=== PATIENT | male | born 1990 | race Caucasian/White ===

== ENCOUNTER 2023-09-30 14:08 | Emergency (ER) | payer SELFPAY ==
[2023-09-30 14:18] VITALS: BP 136/86
[2023-09-30 14:44] VITALS: BMI 20.3
--- NOTE | 2023-09-30 15:38 | ED.GENMED ---
History of Present Illness
General
Chief Complaint: Chest Pain
Source: patient
Exam Limitations: none
Time Seen by Provider: 09/30/23 15:36
Nursing documentation reviewed up to this point in time: agreed with
Travel History
Have you had any contact with someone who has COVID-19?: No
Do you have any symptoms of coronavirus? Fever > 100 degrees, chills, cough, shortness of breath, sore throat, loss of taste or smell, muscle aches, or headache?: No
History of Present Illness
History of Present Illness:
33-year-old male with past medical history of previous drug abuse presents to the emergency room for evaluation of chest pain. Patient reports onset of symptoms about 20 minutes prior to arrival here and symptoms abated shortly after arrival here
in triage. Currently asymptomatic on my assessment. He reports 'gurgling' sensation in the left lower chest. He says onset was shortly after he drank a cup of coffee. He says that he had mild associated palpitations. He says he felt some mild
shortness of breath. He denies any syncope. Denies any nausea, vomiting. He denies any recent illness�no coughing, fevers, chills. Has not noticed any swelling or pain in his legs. He denies having had similar symptoms in the past. He denies
any known cardiac history. He did mention in triage bizarre history of hearing voices telling him that he had titanium in his heart�he tells me that on an ongoing basis he has been having delusions/voices that tell him that he had some sort of an
accident or could be in a coma and that he needs to wake up. He says that he does not have any command hallucinations, he tells me he is not suicidal and does not feel he is a risk to himself and he says that he understands that this is not normal.
He is interested in discussing outpatient psychiatric treatment options but has no interest in inpatient psychiatric treatment. He did mention that he is continue to use Adderall recreationally triage. Denies other drug use.
Past History
Past History
ED Past Medical History: Psychiatric (anxiety)
ED Past Surgical History: Other (Right inguinal Hernia repair)
Social History
Tobacco: Smoker
Alcohol: Occasional
Drug: Former user (cocaine and THC)
Personal: Single
Living: with family
Employment: Employed
Family History
Family History: Other (Noncontributory)
Review of Systems
Review of Systems
All Other Systems: ROS reviewed and negative except as documented in HPI and ROS
Constitutional: Denies fever or chills
EENT: Denies sore throat or runny nose
Respiratory: Reports trouble breathing; Denies cough
Cardiac: Reports chest pain and palpitations; Denies diaphoresis or syncope
ABD/GI: Denies abdominal pain, nausea, vomiting or diarrhea
: Denies flank pain
Musculoskeletal: Denies neck pain or back pain
Neurological: Denies headache, weakness or numbness
Psychiatric: Reports hallucinations; Denies anxiety or suicidal
Phy Exam
Physical Exam
Physical Exam:
General: Awake, alert, oriented x3; no acute distress
Head: Normocephalic, atraumatic
Eyes: Conjunctiva normal, EOMI
Throat: Airway intact, handling secretions
Neck: Trachea midline, supple without meningismus
Lungs: Clear to auscultation bilaterally, no wheezing, rales, rhonchi
Heart: Regular rate and rhythm, no murmurs, gallops, or rubs
Abd: Soft, non distended, nontender
Neuro: Cranial nerves grossly intact, speech fluid
Skin: no rash
Extremities: No edema in extremities, equal pulses in all extremities
Psych: 'Fine' mood, calm and cooperative with good insight and judgment
Scores
Heart Failure Risk
Heart Failure Risk Score: Not Applicable
Heart Score for Chest Pain Patients
STEMI patient?: No
History: Slightly or Non-Suspicious
ECG: Normal
Age: </= 45 years
Risk Factors: No Risk Factors
Troponin: </= Normal Limit
Heart Score for Chest Pain Patients: 0
Heart Score Risk: 2.5% MACE over next 6 weeks
PE Wells Score
Symptoms of DVT: No
No alternative diagnosis better explains the illness: No
Tachycardia with pulse > 100: Yes
Immobilization (>=3 days) or surgery within previous 4 weeks: No
Prior history of DVT or pulmonary embolism: No
Presence of hemoptysis: No
Presence of malignancy: No
Pulmonary Embolism Risk Score: 1.5
Probability of PE: Pt is low risk
Withdrawal Assessment of Alcohol
Withdrawal Assessment Completed?: Not applicable
Course
Orders/Labs/Results
Orders:
Orders
09/30/23 14:12
Electrocardiogram (*1) Urgent
Reason for Study: Chest Pain
EKG- Treatment ONCE
09/30/23 14:25
Chest [CR Chest - 2 Views ] Urgent
Comment:
Reason For Exam: chest tightness
09/30/23 16:02
Complete Blood Count/With Diff Urgent
Comprehensive Metabolic Panel Urgent
D-Dimer Urgent
Lead - Venous [S] Urgent
Troponin I Urgent
Abnormal Lab Results
09/30/23
16:02
WBC 12.8 H 10^3/uL
(4.8-10.8)
RBC 4.34 L 10^6/uL
(4.70-6.10)
Hct 38.9 L %
(39.0-52.0)
MCH 31.1 H pg
(27.0-31.0)
Absolute Neuts (auto) 8.5 H 10^3/uL
(1.4-6.5)
Absolute Monos (auto) 0.7 H 10^3/uL
(0.1-0.6)
09/30/23 16:02
0416/24 16:02
Vital Signs
Initial and Last Documented VS:
Initial Vital Signs
Temp Pulse Resp BP Pulse Ox
36.1 C 106 18 136/86 100
09/30/23 14:18 09/30/23 14:18 09/30/23 14:18 09/30/23 14:18 09/30/23 14:18
Last Documented Vital Signs
Temp Pulse Resp BP Pulse Ox
36.1 C 106 18 136/86 100
09/30/23 14:18 09/30/23 14:18 09/30/23 14:18 09/30/23 14:18 09/30/23 14:18
MDM/Problems Addressed
Differential Diagnosis Includes:
GERD/dyspepsia, esophageal spasm, cardiac dysrhythmia, pneumothorax, pericarditis, ACS much less likely based on clinical history, PE much less likely
MDM/Problems Addressed:
33-year-old male presents for evaluation after an episode of chest pain which she describes as 'gurgling' that lasted about 20 to 30 minutes and has completely resolved. He did have some associated palpitations and shortness of breath. He arrives
tachycardic but otherwise normal vitals. Physical exam as above. By history this sounds like GI issue. His EKG shows no STEMI. In an abundance of caution we will plan to check labs including a CBC and a CMP, troponin, D-dimer. Will check a chest
x-ray. Will monitor for recurrence. Reassess after the above. Patient also reporting some chronic hallucinations from time to time�suspect could be related to his continued recreational Adderall use versus developing primary psychiatric issue; he
has reasonable insight and is behaving normally denies suicidal or homicidal ideation; in my judgment does not appear to be a risk to himself or others at this point no clear grounds for involuntary psychiatric commitment however we will have crisis
speak to him about outpatient psychiatric follow-up.
Initial labs reviewed: CBC shows a leukocytosis of 12.8, CMP no clinically significant abnormalities. His D-dimer is negative. Troponin negative. Chest x-ray shows no acute disease. Unfortunately patient eloped from the emergency room prior to
reassessment. Attempts to contact unsuccessful; however very low suspicion for emergent pathology based on assessment at this negative results as above and likely would have been stable for discharge regardless.
Chronic conditions affecting care:
Substance use
*Radiology
Radiology exam reviewed: preliminary read by ED provider (WIN) and radiology read reviewed
*Pulse Oximetry
Patient hypoxic: no
*EKG
Interpreted by ED Provider?: Yes
Heart Rate: 90
Rate: normal
Rhythm: sinus
[place]: normal axis
Interval: normal interval
QRS Pattern: normal QRS
Ischemia: no ischemia
*Critical Care Note
Total Time (30-74mins, 75-104mins- exclusive of procedures): Not Applicable
Data Reviewed
Review of Other/Old Records Reveals: Labs
Source: patient and records
Patient Management
Social determinants of health affecting care: Substance abuse
Discussion with other providers: Other (Discussed with crisis)
ED Attending Note
-
Portions of this chart may have been created with voice recognition software.� Occasional wrong word or��sound alike� substitutions may have occurred due to the inherent limitations of voice recognition software.
Discharge Plan
Departure
Patient Disposition: Elopement
Date of Disposition: 09/30/23
Time of Disposition: 16:52
Patient with high blood pressure during this ER visit?: No
Discharge Problem:
Chest pain, Hallucinations
Instructions: Chest Pain PCP Follow Up
Prescriptions:
No Action
ketorolac 10 MG tablet
10 mg PO QIDPRN PRN (Reason: flank pain) Qty: 12 0RF
oxycodone-acetaminophen 5 MG/325 MG tablet
1 tab PO Q6HPRN PRN (Reason: pain) Qty: 6 0RF
tamsulosin 0.4 MG capsule
0.4 mg PO DAILY Qty: 7 0RF
ondansetron 4 MG tablet,disintegrating
4 mg PO QIDPRN PRN (Reason: nausea/vomiting) Qty: 20 0RF
Referrals:
Brian Herrmann, [Family Provider] - Call in 1-3 days for appt
Activity Restrictions/Additional Instructions:
Thank you for visiting the Emergency Department at [facility].
1. Please schedule a follow up appointment as directed. Call first thing tomorrow morning to make an appointment.
2. If indicated, please take your medications as instructed and indicated on discharge paperwork.
3. If any of your symptoms do not improve, or persist, or become more severe within 6-12 hours, please return to the emergency department for further care.
4. Please return to the emergency department if you develop a headache, neck pain/stiffness, fever greater than 100.4F, chest pain, shortness of breath, persistent nausea, vomiting, slurred speech, difficulty walking, numbness/tingling, weakness,
signs of infection or any other symptoms that are worrisome to you.
Please call [phone] if you have any questions.
Interventions
Interventions:
*Risk Screen - Suicide Last Done: 09/30/23 14:18
*General Assessment Last Done: 09/30/23 14:18
*Neglect/Abuse Screening Last Done: 09/30/23 14:44
*ED COVID-19 Vaccine History Last Done: 09/30/23 14:18
ED- Cardiac Assessment Last Done: 09/30/23 14:44
Discharge Date and Time
Print Language: CYPRIOT
[2023-09-30 16:23] LABS: % Basophils 0.5 % (0-2); % Eosinophils 5.2 % (0-6); % Immature Granulocytes 0.2 % (0-0.5); % Monocytes 5.8 % (1.7-9.3); % Neutrophils 66.3 % (42.2-75.2); Absolute Basophils 0.1 10^3/uL (0-0.2); Absolute Eosinophils 0.7 10^3/uL (0-0.7); Absolute Lymphocytes 2.8 10^3/uL (1.2-3.4); Absolute Monocytes 0.7 10^3/uL (0.1-0.6); Absolute Neutrophils 8.5 10^3/uL (1.4-6.5); Hematocrit 38.9 % (39.0-52.0); Hemoglobin 13.5 g/dL (13.0-18.0); Mean Corp Hgb Conc. 34.7 g/dL (33.0-37.0); Mean Corpuscular Hgb 31.1 pg (27.0-31.0); Mean Corpuscular Volume 89.6 fL (80.0-94.0); Mean Platelet Volume 9.8 fL (7.4-10.4); Nucleated Red Blood Cells % 0 % (-); Platelet Count 323 10^3/uL (130-400); Red Blood Cell Count 4.34 10^6/uL (4.70-6.10); Red Cell Dist. Width 12.3 % (11.5-14.5); White Blood Cell Count 12.8 10^3/uL (4.8-10.8)
[2023-09-30 16:36] LABS: D-Dimer 0.27 ug/mlFEU (0.00-0.50)
[2023-09-30 16:49] LABS: ALT (SGPT) 18 U/L (0-50); AST (SGOT) 22 U/L (17-59); Albumin 4.5 g/dl (3.5-5.0); Alkaline Phosphatase 78 U/L (38-126); Blood Urea Nitrogen 17 mg/dl (9-20); Calcium 9.6 mg/dl (8.4-10.2); Carbon Dioxide 26 mmol/L (22-30); Chloride 100 mmol/L (98-107); Estimated Creatinine Clearance 124 ml/min; Glucose 99 mg/dl (70-99); Sodium 136 mmol/L (135-145); Total Bilirubin 0.5 mg/dl (0.2-1.3); Total Protein 6.8 g/dl (6.3-8.2); eGFR > 60.00
[2023-09-30 16:55] LABS: Troponin I < 0.012 ng/ml
== END 2023-09-30 17:19 | disposition left against medical advice (07) ==
LOC: EMR 14:08
PROVIDERS: Emergency Medicine; EMERGENCY PHYSICIAN Emergency Medicine; FAMILY PHYSICIAN Family Medicine
DX: R44.3 Hallucinations, unspecified (principal); R07.9 Chest pain, unspecified; R00.2 Palpitations; R06.02 Shortness of breath; R00.0 Tachycardia, unspecified; F19.10 Other psychoactive substance abuse, uncomplicated; F17.200 Nicotine dependence, unspecified, uncomplicated
CPT/HCPCS: 99285; 71046; 80053; 83655; 84484; 85025; 85379; 93005

== ENCOUNTER 2024-01-10 15:12 | Emergency (ER) | payer SELFPAY ==
[2024-01-10 15:12] VITALS: BP 103/61
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
[2024-01-10 17:16] LABS: % Basophils 0.6 % (0-2); % Eosinophils 5.2 % (0-6); % Immature Granulocytes 0.2 % (0-0.5); % Lymphocytes 20.5 % (20.5-51.1); % Monocytes 6.7 % (1.7-9.3); % Neutrophils 66.8 % (42.2-75.2); Absolute Basophils 0.1 10^3/uL (0-0.2); Absolute Eosinophils 0.5 10^3/uL (0-0.7); Absolute Lymphocytes 1.9 10^3/uL (1.2-3.4); Absolute Monocytes 0.6 10^3/uL (0.1-0.6); Hematocrit 35.9 % (39.0-52.0); Hemoglobin 12.8 g/dL (13.0-18.0); Mean Corp Hgb Conc. 35.7 g/dL (33.0-37.0); Mean Corpuscular Hgb 31.1 pg (27.0-31.0); Mean Corpuscular Volume 87.1 fL (80.0-94.0); Mean Platelet Volume 9.7 fL (7.4-10.4); Nucleated Red Blood Cells % 0 % (-); Platelet Count 301 10^3/uL (130-400); Red Blood Cell Count 4.12 10^6/uL (4.70-6.10); Red Cell Dist. Width 12.6 % (11.5-14.5)
[2024-01-10 17:35] LABS: ALT (SGPT) 16 U/L (0-50); AST (SGOT) 22 U/L (17-59); Albumin 4.2 g/dl (3.5-5.0); Alkaline Phosphatase 100 U/L (38-126); Blood Urea Nitrogen 26 mg/dl (9-20); Calcium 9.4 mg/dl (8.4-10.2); Carbon Dioxide 31 mmol/L (22-30); Chloride 104 mmol/L (98-107); Glucose 138 mg/dl (70-99); Potassium 4.1 mmol/L (3.5-5.1); Sodium 139 mmol/L (135-145); Total Bilirubin 0.9 mg/dl (0.2-1.3); Total Protein 6.4 g/dl (6.3-8.2); eGFR > 60.00
[2024-01-11 07:27] VITALS: BP 117/72
== END 2024-01-11 09:42 ==
LOC: EMR 15:12
PROVIDERS: Physician Assistant Medical; EMERGENCY PHYSICIAN Student in an Organized Health Care Education/Training Program
DX: F29 Unspecified psychosis not due to a substance or known physiological condition (principal); R45.4 Irritability and anger; R44.0 Auditory hallucinations; F41.9 Anxiety disorder, unspecified; F17.200 Nicotine dependence, unspecified, uncomplicated; F14.11 Cocaine abuse, in remission; Z88.1 Allergy status to other antibiotic agents; Z88.2 Allergy status to sulfonamides
CPT/HCPCS: 99285; 80053; 85025